=== PATIENT | male | born 1990 | race Caucasian/White ===

== ENCOUNTER 2023-03-05 17:31 | Emergency (ER) | payer SELFPAY ==
[~2023-03-05] VITALS: Ht 182.9 cm; Wt 87.0 kg
[2023-03-05 17:39] VITALS: O2SAT 95
[2023-03-05] MEDS ORDERED: IBUPROFEN 600MG TABLET PO STA (17:55)
[2023-03-05] MEDS ORDERED: IBUP-2029 MT (19:12)
[2023-03-05 19:46] VITALS: BP 117/84; PULSE 78; RESP 19; TEMP 98.3
== END 2023-03-05 19:48 | disposition home or self-care (01) ==
LOC: ER 17:31
DX: S09.90XA Unspecified injury of head, initial encounter (principal); Y08.89XA Assault by other specified means, initial encounter; Y93.89 Activity, other specified; Y92.89 Other specified places as the place of occurrence of the external cause; Y99.8 Other external cause status
CPT/HCPCS: 99284